=== PATIENT | male | born 1970 | race Caucasian/White ===

== ENCOUNTER 2019-05-25 15:19 | Emergency (ER) | payer SELFPAY ==
[~2019-05-25] VITALS: Ht 180.3 cm; Wt 109.1 kg
[2019-05-25 15:40] VITALS: Ht 180.3 cm; Wt 109.1 kg
[2019-05-25] MEDS ORDERED: CLEOCIN HCL300 MG PO (17:52)
[2019-05-25] MEDS ORDERED: EC-NAPROSYN500 MG PO (17:52)
[2019-05-25 18:05] VITALS: BP 159/92
== END 2019-05-25 18:06 | disposition home or self-care (01) ==
LOC: D.ER 15:19
DX: S61.241A Puncture wound with foreign body of left index finger without damage to nail, initial encounter (principal); W45.8XXA Other foreign body or object entering through skin, initial encounter

== ENCOUNTER 2019-09-24 20:30 | Emergency (ER) | payer SELFPAY ==
[~2019-09-24] VITALS: Ht 180.3 cm; Wt 95.5 kg
[~2019-09-24 20:30] MED LIST: CLEOCIN HCL300 MG PO; EC-NAPROSYN500 MG PO
[2019-09-24 20:53] VITALS: Ht 180.3 cm; Wt 95.5 kg
[2019-09-24] MEDS ORDERED: PRINIVIL20 MG PO (20:54)
[2019-09-24] MEDS ORDERED: LISINOPRIL-HCT1 EAC7 PO (22:00)
[2019-09-24] MEDS ORDERED: ULTRAM50 MG PO (22:00)
[2019-09-24 22:30] VITALS: BP 177/109
== END 2019-09-24 22:21 | disposition home or self-care (01) ==
LOC: D.ER 20:30
DX: S05.01XA Injury of conjunctiva and corneal abrasion without foreign body, right eye, initial encounter (principal); X58.XXXA Exposure to other specified factors, initial encounter; H44.001 Unspecified purulent endophthalmitis, right eye; I10 Essential (primary) hypertension